=== PATIENT | female | born 1985 | race Caucasian/White ===

== ENCOUNTER 2016-08-23 21:42 | Emergency (ER) | payer OTHER ==
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
--- NOTE | 2016-08-24 07:49 | RAD ---
Exam: Left finger INDICATION: Postreduction left fourth finger. FINDINGS: PA, lateral and oblique views of the left fourth finger were obtained at 2230 hours and compared with a similar exam obtained same day at 2157 hours. The comminuted, oblique fracture through the diaphysis of the middle phalanx the left fourth finger is better evaluated following reduction. No intra-articular extension is identified. There is a thin bone fragment which protrudes along the volar aspect as seen on the lateral view. Fracture fragments, however, demonstrate improved alignment to the earlier exam. There is minor, less than 2 mm, of order to place and angulation of the distal fracture fragment. Sclerotic lesion within the tuft of the distal phalanx is noted and likely a bone island. Regional osseous structures are unremarkable. IMPRESSION: Improved alignment of the comminuted diaphyseal fracture of the middle phalanx the left fourth finger postreduction.
== END 2016-08-23 23:09 | disposition home or self-care (01) ==
LOC: ED 21:42 → EEVIPCON 21:42 → ED 23:09
DX: S62.625A Displaced fracture of middle phalanx of left ring finger, initial encounter for closed fracture (principal); Y93.83 Activity, rough housing and horseplay; Y93.9 Activity, unspecified; Y92.9 Unspecified place or not applicable

== ENCOUNTER 2016-09-01 09:48 | Day surgery (SDC) | payer OTHER ==
--- NOTE | 2016-08-30 10:32 | HP ---
Judy SHEARER : 1985 V DATE OF SERVICE: August 30, 2016 HISTORY OF PRESENT ILLNESS: This is a 31-year-old female who presents with complaints of left hand injury that she sustained about a week ago while doing [employer]. She was seen yesterday by Felix and returns today to discuss surgical options. Her injury is to her left ring finger middle phalanx she is currently in a splint. She is not having any active pain but if she tries to move it is very comfortable. She has no previous injuries at this site. PAST MEDICAL HISTORY: Noncontributory. PAST SURGICAL HISTORY: Noncontributory. CURRENT MEDICATIONS: No medications. ALLERGIES TO MEDICATIONS: No allergies. SOCIAL HISTORY: She is a non-smoker. 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 REVIEW OF SYSTEMS: No recent constitutional symptoms to include fevers and chills. No recent cardiovascular symptoms to include chest pain or palpitations. No recent respiratory symptoms to include shortness of breath or recent infections. PHYSICAL EXAM: Patient is a well-developed, well-nourished female in no acute distress. She is awake and alert, and conversant throughout the encounter. CARDIOVASCULAR: Intact peripheral pulses on bilateral upper extremities. No significant edema on inspection of bilateral upper extremities. NEUROLOGIC: Patient had intact coordinated composite motion of the bilateral upper extremities and sensation intact to light touch in all distributions of bilateral upper extremities. PSYCHIATRIC: Patient was oriented to person, place and time and displayed appropriate mood and affect during the encounter. SKIN: Exam of the skin on bilateral upper extremities showed no significant scars, lesions, rashes or masses. FOCUSED MUSCULOSKELETAL EXAM: Normal resting station of the shoulders, elbows, wrists. Her left hand to shows some ecchymosis and swelling over her fourth digit. She is tender to palpation at the middle phalanx. She has limited motion of the PIP and DIP secondary to pain. She has intact sensation distally and the finger is warm and well perfused. She does demonstrate a slight supination rotational deformity at the finger compared to the other digits with scissoring as she attempts to go into flexion. RADIOGRAPHS: A review of x-rays shows an oblique angulated minimally displaced fracture of the middle phalanx of her left ring finger. ASSESSMENT: A 31-year-old female with a displaced ring finger middle phalanx fracture. PLAN: The plan will be for closed reduction percutaneous pinning versus open reduction internal fixation in order to restore normal alignment and prevent further rotational deformity and shortening. Risks, benefits and alternatives were discussed with the patient and she has elected to proceed with surgery. Informed consent was obtained and documented in the chart and we will get her on the schedule for surgery in the next couple of days. Job [id number] Cc: [place] [facility]
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
[2016-09-01] MEDS ORDERED: IV START KIT ONE ×2 (09:55→10:47)
[2016-09-01] MEDS ORDERED: CEFAZOLIN SODIUM 2 GRAM PREMIX 100 ML IV ONE (09:55)
[2016-09-01] MEDS ORDERED: LACTATED RINGERS 1,000 ML ONE (09:55)
[2016-09-01] MEDS ORDERED: CEFAZOLIN SODIUM 2 GRAM PREMIX 100 ML IV PRN (10:00)
[2016-09-01] MEDS ORDERED: FENTANYL 100 MCG/2 ML VIAL ONE (11:54)
[2016-09-01] MEDS ORDERED: PROPOFOL 20 ML IV ONE (11:54)
[2016-09-01] MEDS ORDERED: MIDAZOLAM HCL 1 MG/ML 2ML VIAL ONE (11:54)
[2016-09-01] MEDS ORDERED: BUPIVACAINE 0.5% (PRES FREE) 30 ML VIAL ONE (12:01)
[2016-09-01] MEDS ORDERED: HYDROMORPHONE HCL 1 MG/ML SYRINGE IV PRN (13:27)
[2016-09-01] MEDS ORDERED: ACETAMINOPHEN 325 MG TABLET PO PRN (13:27)
[2016-09-01] MEDS ORDERED: ONDANSETRON 4 MG/2ML 2 ML VIAL IV PRN (13:27)
[2016-09-01] MEDS ORDERED: DIPHENHYDRAMINE HCL 50 MG/1 ML VIAL IV PRN (13:27)
[2016-09-01] MEDS ORDERED: OXYCODONE/ACETAMINOPHEN 5/325 MG TABLET PO PRN (13:27)
[2016-09-01] MEDS ORDERED: OXYCODONE/ACETAMINOPHEN 5/325 MG TABLET ONE (13:29)
[2016-09-01] MEDS ORDERED: LACTATED RINGERS 1,000 ML IV SCH (13:30)
--- NOTE | 2016-09-01 13:30 | PCMBPN ---
Brief Post Op Note: Date of Procedure: 09/01/16 Start Time: 1300 Preoperative Diagnosis: 1. left ring finger P2 fracture Postoperative Diagnosis: 1. Same Procedure: left ring finger P2 CRPP Surgeon: Danny Bear MD Assist: none Anesthesia: Juan Manuel Walker Findings: as above Condition: stable to PACU Complications: none IV Fluids: 600 mLs of LR Urine Output: 0 mLs Estimated Blood Loss: 0 mLs Tourniquet Time: none Specimens: none Implants: 3x0.054" in k-wires Drains: none Danny Bear MD
--- NOTE | 2016-09-01 13:33 | RAD ---
FINGER LEFT COMPARISON: Left ring finger 3 views, 08/30/2016 HISTORY: Percutaneous pinning of displaced comminuted fracture, middle phalanx of the left ring finger. FINDINGS: Views: Left ring finger PA and lateral Bones: Successful percutaneous pinning of the comminuted fracture of the middle phalanx, with mormonism of normal alignment, using 2 K wires. Joints: Normal Soft tissues: Normal IMPRESSION: Anatomic alignment achieved after percutaneous pain of comminuted fracture of the left ring finger middle phalanx.
--- NOTE | 2016-09-02 08:24 | OP ---
Judy SHEARER : 1985 [id number] DATE OF SERVICE: September 01, 2016 PREOPERATIVE DIAGNOSIS: Left ring finger middle phalanx fracture. POSTOPERATIVE DIAGNOSIS: Left ring finger middle phalanx fracture. PROCEDURE PERFORMED: LEFT RING FINGER MIDDLE PHALANX CLOSED REDUCTION AND PERCUTANEOUS PINNING. SURGEON: Danny Bear M.D. LIVE IN CAREGIVER: None. ANESTHESIA: Marietta BruceR.NLois SPECIMENS: No material was sent to the laboratory. ESTIMATED BLOOD LOSS: None. FLUIDS REPLACED: 600 mL of crystalloid. TOURNIQUET TIME: None. URINE OUTPUT: None. DRAINS: None. IMPANTS: Two 0.045 K-wires. INDICATIONS: This is 31-year-old right-hand dominant female who sustained an injury approximately 2 weeks ago to her left ring finger middle phalanx resulting in an oblique fracture through the shaft of the middle phalanx. She had rotational deformity and was proceeding toward a malunion. She was seen by orthopedics and we recommended that she undergo a closed reduction and percutaneous pinning to restore appropriate alignment and prevent her from having a progressive deformity. DESCRIPTION OF PROCEDURE: The patient was identified in the pre-operative holding area marked with an indelible marker by the operating surgeon. She was taken to the operating room where she was placed in supine position on the operating room table. Antibiotics were administered. Intravenous sedation was administered. The patient was prepped and draped in the usual sterile fashion for surgery. Operative time out was performed and confirmed by all members of the operative team. A digital block using a mixture of 1% lidocaine and 0.5% Marcaine was injected into her hand providing perioperative analgesia. Her finger was manipulated leading to a freeing up of the fracture fragments. We then obtained a provisional reduction and using fluoroscopy placed two 0.045 inch K-wires percutaneously from distal ulnar to proximal radial across the fracture obtaining and maintaining appropriate reduction parameters. At this point we felt that we had addressed the patient's pathology so the pins were cut off outside the skin and bent over. Xeroform was placed around the base of the pin sights and the patient was placed into an ulnar gutter splint with the hand in safe position. The drapes were removed. The patient was transferred to a stretcher and taken postoperatively to the postanesthesia care unit in stable condition. There were no observed intraoperative complications during this procedure. Job [id number] Cc: [facility]
== END 2016-09-01 13:58 | disposition home or self-care (01) ==
LOC: SDC 09:48
PROVIDERS: ATTEND Orthopaedic Surgery
PROC: 0PS Upper Bones, Reposition (ICD-10-PCS; principal; 2016-09-01)
DX: S62.625A Displaced fracture of middle phalanx of left ring finger, initial encounter for closed fracture (principal); X50.0XXA Overexertion from strenuous movement or load, initial encounter; Y93.75 Activity, martial arts